=== PATIENT | female | born 1955 | race Caucasian/White ===

== ENCOUNTER → 2021-12-10 | Day surgery (SDC) | payer MEDICARE, OTHER ==
[2021-12-08 11:37] LABS: BASOPHILS # (AUTO) 0.1 (0.0-0.1); BASOPHILS % 0.5 % (0.0-1.0); EOSINOPHILS # (AUTO) 0.3 (0.0-0.4); EOSINOPHILS % 2.7 % (0.0-6.0); HEMATOCRIT 43.3 % (34.2-44.1); HEMOGLOBIN 13.4 g/dL (12.0-16.0); LYMPHOCYTES # (AUTO) 2.6 (1.0-3.2); LYMPHOCYTES % 21.9 % (18.0-39.1); MEAN CORPUSCULAR HEMOGLOBIN 26.8 pg (28-32); MEAN CORPUSCULAR HGB CONC 30.9 g/dL (31-35); MEAN CORPUSCULAR VOLUME 86.6 fL (81-99); MONOCYTES # (AUTO) 0.9 (0.2-0.8); MONOCYTES % 7.2 % (4.4-11.3); NEUTROPHILS % 66.8 % (38.7-80.0); PLATELET COUNT 336 x10e3/uL (140-360); RED CELL DISTRIBUTION WIDTH 14.6 % (11.7-14.4)
[2021-12-08 12:12] LABS: ANION GAP 16.4 mmol/L (8-16); CALCIUM 10.4 mg/dL (8.4-10.2); CREATININE, SERUM 0.65 mg/dL (0.57-1.11); POTASSIUM 4.4 mmol/L (3.5-5.1)
[~2021-12-10] MED LIST: AMLODIPINE BESY10 MG PO; ATENOLOL50 MG PO; ATORVASTATIN CA20 MG PO; BENAZEPRIL HCL10 MG PO; BUPIVACAINE HCL 0.5% INJ 30 ML VIAL INJ ONE; CARAFATE1 GM PO; CEFTRIAXONE 1 GM VIAL ONE; COLESTIPOL HCL1 GM PO; Clindamycin INJ 300 MG/50 ML 50 ML IV ONE; EPHEDRINE SULFATE INJ 50 MG/ML VIAL ONE; FAMOTIDINE 20 MG/2 ML VIAL IV ONE; FENTANYL CITRATE/PF 100MCG/2 ML INJ ONE; GENTAMICIN 80MG/NS 100 ML 200 ML IV ONE; GLIMEPIRIDE2 MG PO; HYDROCHLOROTHIA25 MG PO; JANUVIA100 MG PO; LEXAPRO10 MG PO; LIDOCAINE 2%/ EPINEPHRINE 20ML MDV ONE; LIDOCAINE HCL 2% LOCAL INJ 5 ML SDV VIAL INJ ONE; METFORMIN HCL500 MG PO; METOCLOPRAMIDE HCL 10 MG/2ML VIAL ONE; METOPROLOL TART50 MG PO; MIDAZOLAM HCL 2 MG/2 ML VIAL ONE; NIFEDIPINE ER30 M1 PO; ONDANSETRON HCL INJ 2MG/ML 2ML 2 MG/ML VIAL ONE; OXYBUTYNIN CHLO10 MG PO; PANTOPRAZOLE SO40 MG PO; POVIDONE IODINE 0.05% 0.05 % ML PO ONE; PROPOFOL IV EMULSION 10 MG/ML 20 ML VIAL ONE; SEVOFLURANE INHAL SOLN 250 ML PEN BTL ONE; SODIUM CHLORIDE 0.9% 50ML 50 ML ONE; SUCCINYLCHOLINE CHLORIDE 20 MG/ML 10ML VIAL ONE; TRADJENTA5 MG PO
[2021-12-10 13:25] VITALS: BP 126/64
== END | disposition home or self-care (01) ==
LOC: OR 10:37
PROVIDERS: ATTEND Urology
DX: T85.193A Other mechanical complication of implanted electronic neurostimulator, generator, initial encounter (principal); N39.41 Urge incontinence; N39.0 Urinary tract infection, site not specified; G47.33 Obstructive sleep apnea (adult) (pediatric); I10 Essential (primary) hypertension; K21.9 Gastro-esophageal reflux disease without esophagitis; F32.A Depression, unspecified; F41.9 Anxiety disorder, unspecified; Y83.8 Other surgical procedures as the cause of abnormal reaction of the patient, or of later complication, without mention of misadventure at the time of the procedure; Z01.810 Encounter for preprocedural cardiovascular examination; Z01.812 Encounter for preprocedural laboratory examination; Z01.818 Encounter for other preprocedural examination; Z20.822 Contact with and (suspected) exposure to COVID-19; Z79.84 Long term (current) use of oral hypoglycemic drugs; Z79.899 Other long term (current) drug therapy; Z68.34 Body mass index [BMI] 34.0-34.9, adult; Z86.16 Personal history of COVID-19
CPT/HCPCS: 36415 ×2; 64581; 64590; 71046; 76000; 80048; 82948; 85025; 88300; 93005; 95972; C1776; J0330; J0696; J1580; J2001 ×2; J2250; J2405; J2704; J2765; J3010; L8679; U0002; C1767; C1778

== ENCOUNTER → 2023-02-23 | Outpatient (CLI) | payer MEDICARE, OTHER ==
[~2023-02-23] MED LIST changes: -BUPIVACAINE HCL 0.5% INJ 30 ML VIAL INJ ONE; -CEFTRIAXONE 1 GM VIAL ONE; -Clindamycin INJ 300 MG/50 ML 50 ML IV ONE; -EPHEDRINE SULFATE INJ 50 MG/ML VIAL ONE; -FAMOTIDINE 20 MG/2 ML VIAL IV ONE; -FENTANYL CITRATE/PF 100MCG/2 ML INJ ONE; -GENTAMICIN 80MG/NS 100 ML 200 ML IV ONE; -LIDOCAINE 2%/ EPINEPHRINE 20ML MDV ONE; -LIDOCAINE HCL 2% LOCAL INJ 5 ML SDV VIAL INJ ONE; -METOCLOPRAMIDE HCL 10 MG/2ML VIAL ONE; -MIDAZOLAM HCL 2 MG/2 ML VIAL ONE; -ONDANSETRON HCL INJ 2MG/ML 2ML 2 MG/ML VIAL ONE; -POVIDONE IODINE 0.05% 0.05 % ML PO ONE; -PROPOFOL IV EMULSION 10 MG/ML 20 ML VIAL ONE; -SEVOFLURANE INHAL SOLN 250 ML PEN BTL ONE; -SODIUM CHLORIDE 0.9% 50ML 50 ML ONE; -SUCCINYLCHOLINE CHLORIDE 20 MG/ML 10ML VIAL ONE
== END ==
LOC: RAD 16:03
PROVIDERS: ATTEND Urology
DX: N39.41 Urge incontinence (principal)
CPT/HCPCS: 72170; 72220

== ENCOUNTER → 2023-04-14 | Day surgery (SDC) | payer MEDICARE, OTHER ==
[2023-04-13 10:38] LABS: BASOPHILS # (AUTO) 0.1 (0.0-0.1); BASOPHILS % 0.5 % (0.0-1.0); EOSINOPHILS # (AUTO) 0.6 (0.0-0.4); HEMATOCRIT 42.3 % (34.2-44.1); HEMOGLOBIN 13.6 g/dL (12.0-16.0); LYMPHOCYTES # (AUTO) 2.8 (1.0-3.2); LYMPHOCYTES % 20.1 % (18.0-39.1); MEAN CORPUSCULAR HEMOGLOBIN 28.8 pg (28-32); MEAN CORPUSCULAR HGB CONC 32.2 g/dL (31-35); MEAN CORPUSCULAR VOLUME 89.6 fL (81-99); MONOCYTES % 7.1 % (4.4-11.3); NEUTROPHILS # (AUTO) 9.5 (2.1-6.9); NEUTROPHILS % 67.1 % (38.7-80.0); PLATELET COUNT 336 x10e3/uL (140-360); RED BLOOD COUNT 4.72 x10e6/uL (3.6-5.1); RED CELL DISTRIBUTION WIDTH 13.6 % (11.7-14.4)
[2023-04-13 11:04] LABS: ANION GAP 16.4 mmol/L (8-16); CALCIUM 9.9 mg/dL (8.4-10.2); CREATININE, SERUM 0.72 mg/dL (0.57-1.11); POTASSIUM 4.4 mmol/L (3.5-5.1)
[~2023-04-14] MED LIST changes: +ACETAMINOPHEN 1000 MG/100 ML 100 ML IV ONE; +BUPIVACAINE 0.25% 30ML SDV ONE; +BUPIVACAINE HCL 0.5% INJ 30 ML VIAL INJ ONE; +CLINDAMYCIN 600MG / 50ML 50 ML IV ONE; +DEXAMETHASONE SOD PHOS INJ 4 MG/ML SDV ONE; +FENTANYL CITRATE/PF 100MCG/2 ML INJ ONE; +KETOROLAC TROMETHAMINE 30 MG/ML VIAL ONE; +LABETALOL HCL 5 MG/ML 20ML VIAL ONE; +LIDOCAINE 1% W/EPINEPHRINE 20 ML VIAL ONE; +LIDOCAINE 2%/ EPINEPHRINE 20ML MDV ONE; +LIDOCAINE HCL 2% LOCAL INJ 5 ML SDV VIAL INJ ONE; +MIDAZOLAM HCL 2 MG/2 ML VIAL ONE; +NEURONTIN400 MG PO; +ONDANSETRON HCL INJ 2MG/ML 2ML 2 MG/ML VIAL ONE; +OZEMPIC0.25 MG/0. SC; +PIPERACILLIN/TAZOBACTAM 3.375 GM VIAL ONE; +POVIDONE IODINE 0.05% 0.05 % ML PO ONE; +PROPOFOL IV EMULSION 10 MG/ML 20 ML VIAL ONE; +SEVOFLURANE INHAL SOLN 250 ML PEN BTL ONE; +VESICARE5 MG PO
[2023-04-14 17:00] VITALS: BP 104/59; PULSE 84; RESP 18; O2SAT 95
== END | disposition home or self-care (01) ==
LOC: OR 10:00
PROVIDERS: ATTEND Urology
DX: T85.113A Breakdown (mechanical) of implanted electronic neurostimulator, generator, initial encounter (principal); T85.111A Breakdown (mechanical) of implanted electronic neurostimulator of peripheral nerve electrode (lead), initial encounter; N39.41 Urge incontinence; G47.33 Obstructive sleep apnea (adult) (pediatric); I10 Essential (primary) hypertension; E11.9 Type 2 diabetes mellitus without complications; K21.9 Gastro-esophageal reflux disease without esophagitis; Y83.8 Other surgical procedures as the cause of abnormal reaction of the patient, or of later complication, without mention of misadventure at the time of the procedure; Z01.810 Encounter for preprocedural cardiovascular examination; Z01.812 Encounter for preprocedural laboratory examination; Z01.818 Encounter for other preprocedural examination; Z79.84 Long term (current) use of oral hypoglycemic drugs; Z79.85 Long-term (current) use of injectable non-insulin antidiabetic drugs; Z79.899 Other long term (current) drug therapy
CPT/HCPCS: 36415 ×2; 64581; 64590; 71046; 76000; 80048; 82948; 85025; 88300; 93005; 95972; C1767; C1778; C1787; J0131; J1100; J1885; J2001 ×2; J2250; J2405; J2543; J2704; J3010; J3490

== ENCOUNTER → 2024-11-14 | Outpatient (REF) | payer MEDICARE, OTHER ==
[~2024-11-14] MED LIST changes: -ACETAMINOPHEN 1000 MG/100 ML 100 ML IV ONE; -BUPIVACAINE 0.25% 30ML SDV ONE; -BUPIVACAINE HCL 0.5% INJ 30 ML VIAL INJ ONE; -CLINDAMYCIN 600MG / 50ML 50 ML IV ONE; -DEXAMETHASONE SOD PHOS INJ 4 MG/ML SDV ONE; -FENTANYL CITRATE/PF 100MCG/2 ML INJ ONE; -KETOROLAC TROMETHAMINE 30 MG/ML VIAL ONE; -LABETALOL HCL 5 MG/ML 20ML VIAL ONE; -LIDOCAINE 1% W/EPINEPHRINE 20 ML VIAL ONE; -LIDOCAINE 2%/ EPINEPHRINE 20ML MDV ONE; -LIDOCAINE HCL 2% LOCAL INJ 5 ML SDV VIAL INJ ONE; -MIDAZOLAM HCL 2 MG/2 ML VIAL ONE; -ONDANSETRON HCL INJ 2MG/ML 2ML 2 MG/ML VIAL ONE; -PIPERACILLIN/TAZOBACTAM 3.375 GM VIAL ONE; -POVIDONE IODINE 0.05% 0.05 % ML PO ONE; -PROPOFOL IV EMULSION 10 MG/ML 20 ML VIAL ONE; -SEVOFLURANE INHAL SOLN 250 ML PEN BTL ONE
== END ==
LOC: RAD 10:43
PROVIDERS: ATTEND Urology
DX: Z45.42 Encounter for adjustment and management of neurostimulator (principal)
CPT/HCPCS: 72110; 72220

== ENCOUNTER → 2024-12-18 | Day surgery (SDC) | payer MEDICARE, OTHER ==
[2024-12-17 12:03] LABS: BASOPHILS # (AUTO) 0.1 (0.0-0.1); BASOPHILS % 0.6 % (0.0-1.0); EOSINOPHILS # (AUTO) 0.4 (0.0-0.4); EOSINOPHILS % 4.3 % (0.0-6.0); HEMATOCRIT 43.9 % (34.2-44.1); HEMOGLOBIN 14.7 g/dL (12.0-16.0); LYMPHOCYTES # (AUTO) 2.2 (1.0-3.2); LYMPHOCYTES % 21.4 % (18.0-39.1); MEAN CORPUSCULAR HEMOGLOBIN 30.3 pg (28-32); MEAN CORPUSCULAR HGB CONC 33.5 g/dL (31-35); MEAN CORPUSCULAR VOLUME 90.5 fL (81-99); MONOCYTES # (AUTO) 0.5 (0.2-0.8); MONOCYTES % 5.2 % (4.4-11.3); NEUTROPHILS % 67.9 % (38.7-80.0); PLATELET COUNT 313 x10e3/uL (140-360); RED BLOOD COUNT 4.85 x10e6/uL (3.6-5.1); RED CELL DISTRIBUTION WIDTH 12.6 % (11.7-14.4); WHITE BLOOD COUNT 10.33 x10e3/uL (4.8-10.8)
[2024-12-17 12:50] LABS: ANION GAP 17.8 mmol/L (8-16); CALCIUM 9.5 mg/dL (8.4-10.2); CREATININE, SERUM 0.75 mg/dL (0.57-1.11); POTASSIUM 3.8 mmol/L (3.5-5.1)
[~2024-12-18] MED LIST changes: +ACETAMINOPHEN 1000 MG/100 ML 100 ML IV ONE; +BOTULINUM TOXIN TYPE A 100 UNIT VIAL IM ONE; +DEXAMETHASONE SOD PHOS INJ 4 MG/ML SDV ONE; +EPHEDRINE SULFATE INJ 50 MG/ML VIAL ONE; +FENTANYL CITRATE/PF 100MCG/2 ML INJ ONE; +LIDOCAINE HCL 2% LOCAL INJ 5 ML SDV VIAL INJ ONE; +MOUNJARO2.5 MG/0.5; +ONDANSETRON HCL INJ 2MG/ML 2ML 2 MG/ML VIAL ONE; +PROPOFOL IV EMULSION 10 MG/ML 20 ML VIAL ONE
[2024-12-18] MEDS: CEFAZOLIN SODIUM 2 GM ONE (07:46)
[2024-12-18] MEDS: LACTATED RINGER'S 1,000 ML ONE (07:46)
[2024-12-18] MEDS: FENTANYL CITRATE/PF 100MCG/2 ML INJ ONE (09:43)
[2024-12-18 12:17] VITALS: TEMP 97.2
[2024-12-18] MEDS: PHENAZOPYRIDINE HCL 100 MG TAB ONE (12:40)
[2024-12-18] MEDS: ACETAMINOPHEN/CODEINE 300MG - 30MG TAB ONE (12:52)
[2024-12-18 13:15] VITALS: BP 110/64; PULSE 96; RESP 16; O2SAT 97
== END | disposition home or self-care (01) ==
LOC: OR 07:15
PROVIDERS: ATTEND Urology
DX: N39.46 Mixed incontinence (principal); N30.30 Trigonitis without hematuria; N32.81 Overactive bladder; N81.10 Cystocele, unspecified; N81.6 Rectocele; N95.2 Postmenopausal atrophic vaginitis; G47.33 Obstructive sleep apnea (adult) (pediatric); E11.9 Type 2 diabetes mellitus without complications; I10 Essential (primary) hypertension; E78.5 Hyperlipidemia, unspecified; G89.29 Other chronic pain; K21.9 Gastro-esophageal reflux disease without esophagitis; H91.93 Unspecified hearing loss, bilateral; Z01.810 Encounter for preprocedural cardiovascular examination; Z01.812 Encounter for preprocedural laboratory examination; Z01.818 Encounter for other preprocedural examination; Z79.84 Long term (current) use of oral hypoglycemic drugs; Z79.85 Long-term (current) use of injectable non-insulin antidiabetic drugs; Z79.899 Other long term (current) drug therapy; Z68.32 Body mass index [BMI] 32.0-32.9, adult
CPT/HCPCS: 36415; 52005; 52287; 64585; 64595; 71046; 74420; 80048; 85025; 87086; 88300; 93005; C1758; J0131; J0587; J1100; J2003; J2405; J2704; J3010; J7121

== ENCOUNTER → 2025-07-16 | Day surgery (SDC) | payer MEDICARE, OTHER ==
[~2025-07-16] MED LIST changes: -EPHEDRINE SULFATE INJ 50 MG/ML VIAL ONE; +FAMOTIDINE 20 MG/2 ML VIAL IV ONE; +SEVOFLURANE INHAL SOLN 250 ML PEN BTL ONE
[2025-07-16 08:22] LABS: BASOPHILS % 0.4 % (0.0-1.0); EOSINOPHILS % 4.9 % (0.0-6.0); LYMPHOCYTES % 19.6 % (18.0-39.1); MONOCYTES % 6.0 % (4.4-11.3); NEUTROPHILS % 68.5 % (38.7-80.0); RED CELL DISTRIBUTION WIDTH 13.3 % (11.7-14.4)
[2025-07-16] MEDS: LEVOFLOXACIN 500MG/D5W 100ML 100 ML IV ONE (08:31)
[2025-07-16] MEDS: LACTATED RINGER'S 1,000 ML ONE (08:32)
[2025-07-16 08:49] LABS: EST GLOMERULAR FILTRATION RATE 99.0 ML/MIN (>=60)
[2025-07-16] MEDS: PHENAZOPYRIDINE HCL 100 MG TAB ONE (10:08)
[2025-07-16 10:48] VITALS: BP 134/76; PULSE 88; RESP 18; O2SAT 97
== END | disposition home or self-care (01) ==
LOC: OR 07:44
PROVIDERS: ATTEND Urology
DX: N39.46 Mixed incontinence (principal); N39.0 Urinary tract infection, site not specified; N81.10 Cystocele, unspecified; N81.6 Rectocele; N95.2 Postmenopausal atrophic vaginitis; N32.81 Overactive bladder; I10 Essential (primary) hypertension; E10.9 Type 1 diabetes mellitus without complications; Z79.85 Long-term (current) use of injectable non-insulin antidiabetic drugs; Z79.84 Long term (current) use of oral hypoglycemic drugs; G47.33 Obstructive sleep apnea (adult) (pediatric); E66.01 Morbid (severe) obesity due to excess calories; Z68.24 Body mass index [BMI] 24.0-24.9, adult; K21.9 Gastro-esophageal reflux disease without esophagitis; E78.5 Hyperlipidemia, unspecified; F32.A Depression, unspecified; R94.31 Abnormal electrocardiogram [ECG] [EKG]; Z79.899 Other long term (current) drug therapy
CPT/HCPCS: 36415; 52005; 52287; 74420; 80048; 82948; 85025; 87086; 93005; C1758; J0131; J0587; J1100; J1308; J1956; J2003; J2405; J2704; J3010; J7121